=== PATIENT | female | born 1960 | race Caucasian/White ===

== ENCOUNTER 2018-01-27 22:59 | Inpatient (IN) | payer BC, OTHER ==
[~2018-01-27] VITALS: Ht 160 cm; Wt 94.1 kg
[2018-01-27] MEDS ORDERED: IV NORMAL SALINE 1000ML BAG 1,000 ML IV ONE (23:30)
[2018-01-27] MEDS ORDERED: ONDANSETRON PF 4 MG/2 ML VIAL. IV ONE (23:30)
[2018-01-27 23:57] LABS: BASO % 0 % (0-3); EOS % 0 % (0-3); HEMATOCRIT 38.6 % (36.0-47.0); HEMOGLOBIN 13.5 g/dL (12.0-15.5); LYMPH # 0.9 x10^3/uL (1.0-4.8); LYMPH % 4 % (24-48); MEAN CORPUSCULAR HEMOGLOBIN 30 pg (25-35); MEAN CORPUSCULAR HGB CONC 35 g/dL (31-37); MEAN CORPUSCULAR VOLUME 87 fL (79-100); MONO # 2.2 x10^3/uL (0.0-1.1); MONO % 10 % (0-9); NEUT # 18.7 x10^3uL (1.8-7.7); NEUT % 86 % (31-73); PLATELET COUNT 228 x10^3/uL (140-400); RED BLOOD COUNT 4.45 x10^6/uL (3.50-5.40); RED CELL DISTRIBUTION WIDTH 12.2 % (11.5-14.5); WHITE BLOOD COUNT 21.9 x10^3/uL (4.0-11.0)
[2018-01-28 00:11] LABS: ALBUMIN 2.5 g/dL (3.4-5.0); ALBUMIN/GLOBULIN RATIO 0.5 (1.0-1.7); CREATININE 1.2 mg/dL (0.6-1.0); GFR 46.6; TOTAL BILIRUBIN 0.7 mg/dL (0.2-1.0); TOTAL PROTEIN 7.4 g/dL (6.4-8.2)
[2018-01-28 00:13] LABS: BILIRUBIN,URINE NEGATIVE (NEG); CLARITY,URINE CLOUDY; COLOR,URINE YELLOW; NITRITE,URINE NEGATIVE (NEG); PH,URINE 5.5; PROTEIN,URINE 100 mg/dL (NEG-TRACE)
[2018-01-28 00:16] LABS: POTASSIUM 2.1 mmol/L (3.5-5.1)
[2018-01-28 00:20] LABS: BACTERIA,URINE MANY /HPF (0-FEW); SQUAMOUS EPITHELIAL CELL,UR FEW /LPF; WBC,URINE 20-40 /HPF (0-4)
--- NOTE | 2018-01-28 00:34 | PHYS DOC ---
Past Medical History Past Medical History: No Pertinent History Past Surgical History: No Surgical History Alcohol Use: Rarely Drug Use: None Adult General Chief Complaint Chief Complaint: FLU SYMPTOM HPI HPI Patient is a 57 year old female who presents to the ER with complaints of body aches and fatigue since last Tuesday01/22/18. She reports feeling febrile since , she has not measured her temperature. At this time she reports nausea, low back pain, and foul smelling urine. She denies any chest pain, abdominal pain, vomiting, or diarrhea. Review of Systems Review of Systems Constitutional: reports fever, fatigue, and body aches x5-6 days HENT: Denies nasal congestion or sore throat [] Respiratory: Denies cough or shortness of breath [] Cardiovascular: Denies chest pain GI: Denies abdominal pain, vomiting or diarrhea; reports nausea : Denies dysuria, increased frequency, or hematuria; reports foul smelling urine Musculoskeletal: reports bilateral low back pain, denies numbness or tingling Integument: Denies rash or skin lesions [] Neurologic: Denies focal weakness or sensory changes, reports some headaches All other systems were reviewed and found to be within normal limits, except as documented in this note. Current Medications Current Medications Current Medications Medications (Trade) Dose Ordered Sig/Lloyd Start Time Stop Time Status Last Admin Dose Admin Levofloxacin/ Dextrose 100 ml @ 100 mls/hr 1X ONCE 01/28/18 01:00 01/28/18 01:59 Morphine Sulfate (Morphine Sulfate) 4 mg 1X ONCE 01/28/18 01:00 01/28/18 01:01 Ondansetron HCl (Zofran) 4 mg 1X ONCE 01/27/18 23:30 01/27/18 23:31 DC 01/27/18 23:53 4 MG Potassium Chloride (KCl Oral Soln) 40 meq 1X ONCE 01/28/18 03:30 01/28/18 03:31 Sodium Chloride 1,000 ml @ 1,000 mls/hr 1X ONCE 01/28/18 01:00 01/28/18 01:59 Allergies Allergies Allergies Coded Allergies Type Severity Reaction Last Updated Verified diphenhydramine Allergy Severe sensation of bugs 01/27/18 Yes hydrocodone Allergy Severe sensation of bugs 01/27/18 Yes Physical Exam Physical Exam Constitutional: Well developed, well nourished, no acute distress, ill appearance HENT: Normocephalic, atraumatic, bilateral external ears normal, nose normal. [] Eyes: PERRLA, conjunctiva normal, no discharge. [] Neck: Normal range of motion, no tenderness, supple, no stridor, no nuchal rigidity . [] Cardiovascular:Heart rate regular rhythm, no murmur [] Lungs & Thorax: Bilateral breath sounds clear to auscultation [] Skin: Warm, dry, no erythema, no rash. [] Back: bilateral CVA tenderness. [] Extremities: No cyanosis, no clubbing, ROM intact, no edema. [] Neurologic: Alert and oriented X 3, normal motor function, normal sensory function, no focal deficits noted. [] Psychologic: Affect normal, judgement normal, mood normal. [] Current Patient Data Vital Signs Vital Signs Date Time Temp Pulse Resp B/P (MAP) Pulse Ox O2 Delivery O2 Flow Rate FiO2 01/27/18 23:04 102.4 104 22 130/66 (87) 96 Room Air 102.4 Lab Values Laboratory Tests Test 01/27/18 23:37 01/27/18 23:50 White Blood Count 21.9 x10^3/uL (4.0-11.0) H Red Blood Count 4.45 x10^6/uL (3.50-5.40) Hemoglobin 13.5 g/dL (12.0-15.5) Hematocrit 38.6 % (36.0-47.0) Mean Corpuscular Volume 87 fL (79-100) Mean Corpuscular Hemoglobin 30 pg (25-35) Mean Corpuscular Hemoglobin Concent 35 g/dL (31-37) Red Cell Distribution Width 12.2 % (11.5-14.5) Platelet Count 228 x10^3/uL (140-400) Neutrophils (%) (Auto) 86 % (31-73) H Lymphocytes (%) (Auto) 4 % (24-48) L Monocytes (%) (Auto) 10 % (0-9) H Eosinophils (%) (Auto) 0 % (0-3) Basophils (%) (Auto) 0 % (0-3) Neutrophils # (Auto) 18.7 x10^3uL (1.8-7.7) H Lymphocytes # (Auto) 0.9 x10^3/uL (1.0-4.8) L Monocytes # (Auto) 2.2 x10^3/uL (0.0-1.1) H Eosinophils # (Auto) 0.0 x10^3/uL (0.0-0.7) Basophils # (Auto) 0.0 x10^3/uL (0.0-0.2) Segmented Neutrophils % 89 % (35-66) H Band Neutrophils % 2 % (0-9) Lymphocytes % 4 % (24-48) L Monocytes % 5 % (0-10) Toxic Granulation Marked Toxic Vacuolation Mod Dohle Bodies Few Platelet Estimate Adequate (ADEQUATE) Sodium Level 133 mmol/L (136-145) L Potassium Level 2.1 mmol/L (3.5-5.1) *L Chloride Level 92 mmol/L (98-107) L Carbon Dioxide Level 31 mmol/L (21-32) Anion Gap 10 (6-14) Blood Urea Nitrogen 19 mg/dL (7-20) Creatinine 1.2 mg/dL (0.6-1.0) H Estimated GFR (Cockcroft-Gault) 46.6 BUN/Creatinine Ratio 16 (6-20) Glucose Level 132 mg/dL (70-99) H Calcium Level 9.0 mg/dL (8.5-10.1) Total Bilirubin 0.7 mg/dL (0.2-1.0) Aspartate Amino Transferase (AST) 44 U/L (15-37) H Alanine Aminotransferase (ALT) 47 U/L (14-59) Alkaline Phosphatase 136 U/L (46-116) H Total Protein 7.4 g/dL (6.4-8.2) Albumin 2.5 g/dL (3.4-5.0) L Albumin/Globulin Ratio 0.5 (1.0-1.7) L Urine Collection Type Unknown Urine Color Yellow Urine Clarity Cloudy Urine pH 5.5 Urine Specific [place] 1.020 Urine Protein 100 mg/dL (NEG-TRACE) Urine Glucose (UA) Negative mg/dL (NEG) Urine Ketones (Stick) 15 mg/dL (NEG) Urine Blood Large (NEG) Urine Nitrite Negative (NEG) Urine Bilirubin Negative (NEG) Urine Urobilinogen Dipstick 1.0 mg/dL (0.2 mg/dL) Urine Leukocyte Esterase Large (NEG) Urine RBC 6-10 /HPF (0-2) Urine WBC 20-40 /HPF (0-4) Urine Squamous Epithelial Cells Few /LPF Urine Bacteria Many /HPF (0-FEW) Urine Mucus Slight /LPF Laboratory Tests 01/27/18 23:37 Laboratory Tests 01/27/18 23:37 EKG EKG [] Radiology/Procedures Radiology/Procedures [] Course & Med Decision Making Course & Med Decision Making Pertinent Labs and Imaging studies reviewed. (See chart for details) DDx: UTI, pyelonephritis, URI, influenza Dx: pyelonephritis and hypokalemia CBC - BMP 01/27/18 23:37 Urine was concerning for pyelonephritis with 20-40 WBC, large leuk, many bacteria, and blood present. Pt was given 40 meq of liquid potassium, 2 liters of NS, 4 mg zofran, 4 mg morphine, and 500 mg of levaquin in the ER. Decision to admit for pyelonephritis , and hypokalemia to Dr. Griggs. [] Dragdevika Disclaimer Dragon Disclaimer This electronic medical record was generated, in whole or in part, using a voice recognition dictation system. Departure Departure Referrals: CLIF STEWART (PCP) MERLYN ALEJO APRN Jan 28, 2018 00:34
[2018-01-28 00:37] LABS: % BANDS 2 % (0-9); % LYMPHS 4 % (24-48); % MONOS 5 % (0-10); % SEGS 89 % (35-66); PLT ESTIMATE ADEQUATE (ADEQUATE); TOXIC GRANULATION MARKED; TOXIC VACUOLATION MOD
[2018-01-28] MEDS ORDERED: POTASSIUM CHLORIDE 20 MEQ/15 ML ORAL LIQUID. PO ONE ×3 (01:00→03:30)
[2018-01-28] MEDS ORDERED: IV NORMAL SALINE 1000ML BAG 1,000 ML IV ONE (01:00)
[2018-01-28] MEDS ORDERED: MORPHINE SULFATE 4 MG/ML VIAL. IV ONE (01:00)
[2018-01-28 02:20] VITALS: BP 124/57
[2018-01-28] MEDS: MORPHINE SULFATE 4 MG/ML VIAL. IV PRN ×2 (02:44→16:46)
[2018-01-28] MEDS ORDERED: TRAM50TA PO (03:09)
[2018-01-28] MEDS ORDERED: HYDR25TA9 PO (03:09)
[2018-01-28] MEDS ORDERED: TOPI50TA8 PO (03:09)
[2018-01-28] MEDS ORDERED: LISD70CA5 PO (03:09)
[2018-01-28] MEDS ORDERED: MELO15TA23 PO (03:09)
[2018-01-28] MEDS ORDERED: PROAIR HFA8.5 GM INH (03:09)
[2018-01-28] MEDS: ACETAMINOPHEN 325 MG TABLET. PO PRN ×2 (03:12→21:58)
[2018-01-28 07:00] VITALS: BP 82/47
[2018-01-28 07:17] LABS: CALCIUM 8.2 mg/dL (8.5-10.1); CREATININE 1.4 mg/dL (0.6-1.0); POTASSIUM 3.2 mmol/L (3.5-5.1)
[2018-01-28 07:18] LABS: BASO % 0 % (0-3); EOS % 0 % (0-3); HEMATOCRIT 35.9 % (36.0-47.0); HEMOGLOBIN 12.2 g/dL (12.0-15.5); LYMPH # 1.5 x10^3/uL (1.0-4.8); LYMPH % 8 % (24-48); MEAN CORPUSCULAR HEMOGLOBIN 30 pg (25-35); MEAN CORPUSCULAR HGB CONC 34 g/dL (31-37); MEAN CORPUSCULAR VOLUME 89 fL (79-100); MONO # 1.4 x10^3/uL (0.0-1.1); MONO % 8 % (0-9); NEUT # 15.9 x10^3uL (1.8-7.7); NEUT % 84 % (31-73); PLATELET COUNT 200 x10^3/uL (140-400); RED BLOOD COUNT 4.05 x10^6/uL (3.50-5.40); RED CELL DISTRIBUTION WIDTH 12.5 % (11.5-14.5); WHITE BLOOD COUNT 18.9 x10^3/uL (4.0-11.0)
--- NOTE | 2018-01-28 10:53 | PDOC1 ---
History and Physical Date of Admission Date of Admission 01/28/18 Identification/Chief Complaint Chief Complaint body aches, fever and flu like symptoms Source Source: Chart review, Patient History of Present Illness History of Present Illness Patient is a 57 year old female who presents to the ER with complaints of body aches and fatigue since last Tuesday01/22/18. She reports feeling febrile since , she has not measured her temperature. At this time she reports nausea, low back pain, and foul smelling urine. She denies any chest pain, abdominal pain, vomiting, or diarrhea. Past Medical History Cardiovascular: No pertinent hx Pulmonary: No pertinent hx GI: No pertinent hx Heme/Onc: No pertinent hx Hepatobiliary: No pertinent hx Rheumatologic: No pertinent hx Infectious disease: No pertinent hx ENT: No pertinent hx Renal/: No pertinent hx Endocrine: No pertinent hx Past Surgical History Past Surgical History: No pertinent history Family History Family History: Hypertension Social History Smoke: No ALCOHOL: rare Drugs: None Current Medications Current Medications Current Medications Medications (Trade) Dose Ordered Sig/Lloyd Start Time Stop Time Status Last Admin Dose Admin Acetaminophen (Tylenol) 650 mg PRN Q6HRS PRN 01/28/18 03:00 01/28/18 03:12 650 MG Influenza Virus Vaccine (Afluria Trivalent [id number] Syringe) 0.5 ml ONCE ONCE 01/28/18 09:00 01/28/18 09:01 DC 01/28/18 09:06 0.5 ML Levofloxacin/ Dextrose 100 ml @ 100 mls/hr 1X ONCE 01/28/18 01:00 01/28/18 01:59 DC 01/28/18 01:06 100 MLS/HR Morphine Sulfate (Morphine Sulfate) 6 mg PRN Q4HRS PRN 01/28/18 02:45 01/28/18 02:44 6 MG Ondansetron HCl (Zofran) 4 mg 1X ONCE 01/27/18 23:30 01/27/18 23:31 DC 01/27/18 23:53 4 MG Potassium Chloride (KCl Oral Soln) 40 meq 1X ONCE 01/28/18 03:30 01/28/18 03:31 DC 01/28/18 03:12 40 MEQ Sodium Chloride 1,000 ml @ 1,000 mls/hr 1X ONCE 01/28/18 01:00 01/28/18 01:59 DC 01/28/18 01:00 1,000 MLS/HR Allergies Allergies Allergies Coded Allergies Type Severity Reaction Last Updated Verified diphenhydramine Allergy Severe sensation of bugs 01/27/18 Yes hydrocodone Allergy Severe sensation of bugs 01/27/18 Yes ROS Review of System CONSTITUTIONAL: + fever no chills EYES: No recent changes SKIN: No rash or itching CARDIOVASCULAR: No chest pain, syncope, palpitations, or edema RESPIRATORY: No SOB or cough GASTROINTESTINAL: + nausea,NO vomiting or abdominal pain NEUROLOGICAL: No headaches or weakness ENDOCRINE: No cold or heat intolerance GENITOURINARY: No urgency or frequency of urination MUSCULOSKELETAL: + back pain No joint pain LYMPHATICS: No enlarged lymph nodes PSYCHIATRIC: No anxiety or depression Physical Exam Physical Exam GEN.: No apparent distress. Alert and oriented. HEENT: Head is normocephalic, atraumatic NECK: Supple. LUNGS: Clear to auscultation. HEART: RRR, S1, S2 present. Peripheral pulses intact ABDOMEN: Soft, nontender. Positive bowel sounds. EXTREMITIES: Without any cyanosis. NEUROLOGIC: Normal speech, normal tone PSYCHIATRIC: Normal affect, normal mood. SKIN: No ulcerations Vitals Vitals Vital Signs Date Time Temp Pulse Resp B/P (MAP) Pulse Ox O2 Delivery O2 Flow Rate FiO2 01/28/18 10:29 16 Room Air 01/28/18 07:00 97.7 84 82/47 (59) 92 97.7 01/28/18 01:45 Labs Labs Laboratory Tests Test 01/27/18 23:37 01/27/18 23:50 01/28/18 06:35 White Blood Count 21.9 x10^3/uL (4.0-11.0) 18.9 x10^3/uL (4.0-11.0) Red Blood Count 4.45 x10^6/uL (3.50-5.40) 4.05 x10^6/uL (3.50-5.40) Hemoglobin 13.5 g/dL (12.0-15.5) 12.2 g/dL (12.0-15.5) Hematocrit 38.6 % (36.0-47.0) 35.9 % (36.0-47.0) Mean Corpuscular Volume 87 fL (79-100) 89 fL (79-100) Mean Corpuscular Hemoglobin 30 pg (25-35) 30 pg (25-35) Mean Corpuscular Hemoglobin Concent 35 g/dL (31-37) 34 g/dL (31-37) Red Cell Distribution Width 12.2 % (11.5-14.5) 12.5 % (11.5-14.5) Platelet Count 228 x10^3/uL (140-400) 200 x10^3/uL (140-400) Neutrophils (%) (Auto) 86 % (31-73) 84 % (31-73) Lymphocytes (%) (Auto) 4 % (24-48) 8 % (24-48) Monocytes (%) (Auto) 10 % (0-9) 8 % (0-9) Eosinophils (%) (Auto) 0 % (0-3) 0 % (0-3) Basophils (%) (Auto) 0 % (0-3) 0 % (0-3) Neutrophils # (Auto) 18.7 x10^3uL (1.8-7.7) 15.9 x10^3uL (1.8-7.7) Lymphocytes # (Auto) 0.9 x10^3/uL (1.0-4.8) 1.5 x10^3/uL (1.0-4.8) Monocytes # (Auto) 2.2 x10^3/uL (0.0-1.1) 1.4 x10^3/uL (0.0-1.1) Eosinophils # (Auto) 0.0 x10^3/uL (0.0-0.7) 0.0 x10^3/uL (0.0-0.7) Basophils # (Auto) 0.0 x10^3/uL (0.0-0.2) 0.0 x10^3/uL (0.0-0.2) Segmented Neutrophils % 89 % (35-66) Band Neutrophils % 2 % (0-9) Lymphocytes % 4 % (24-48) Monocytes % 5 % (0-10) Toxic Granulation Marked Toxic Vacuolation Mod Dohle Bodies Few Platelet Estimate Adequate (ADEQUATE) Sodium Level 133 mmol/L (136-145) 136 mmol/L (136-145) Potassium Level 2.1 mmol/L (3.5-5.1) 3.2 mmol/L (3.5-5.1) Chloride Level 92 mmol/L (98-107) 100 mmol/L (98-107) Carbon Dioxide Level 31 mmol/L (21-32) 26 mmol/L (21-32) Anion Gap 10 (6-14) 10 (6-14) Blood Urea Nitrogen 19 mg/dL (7-20) 19 mg/dL (7-20) Creatinine 1.2 mg/dL (0.6-1.0) 1.4 mg/dL (0.6-1.0) Estimated GFR (Cockcroft-Gault) 46.6 39.0 BUN/Creatinine Ratio 16 (6-20) Glucose Level 132 mg/dL (70-99) 151 mg/dL (70-99) Calcium Level 9.0 mg/dL (8.5-10.1) 8.2 mg/dL (8.5-10.1) Total Bilirubin 0.7 mg/dL (0.2-1.0) Aspartate Amino Transf (AST/SGOT) 44 U/L (15-37) Alanine Aminotransferase (ALT/SGPT) 47 U/L (14-59) Alkaline Phosphatase 136 U/L (46-116) Total Protein 7.4 g/dL (6.4-8.2) Albumin 2.5 g/dL (3.4-5.0) Albumin/Globulin Ratio 0.5 (1.0-1.7) Urine Collection Type Unknown Urine Color Yellow Urine Clarity Cloudy Urine pH 5.5 Urine Specific [place] 1.020 Urine Protein 100 mg/dL (NEG-TRACE) Urine Glucose (UA) Negative mg/dL (NEG) Urine Ketones (Stick) 15 mg/dL (NEG) Urine Blood Large (NEG) Urine Nitrite Negative (NEG) Urine Bilirubin Negative (NEG) Urine Urobilinogen Dipstick 1.0 mg/dL (0.2 mg/dL) Urine Leukocyte Esterase Large (NEG) Urine RBC 6-10 /HPF (0-2) Urine WBC 20-40 /HPF (0-4) Urine Squamous Epithelial Cells Few /LPF Urine Bacteria Many /HPF (0-FEW) Urine Mucus Slight /LPF Lactic Acid Level 1.2 mmol/L (0.4-2.0) Laboratory Tests Test 01/27/18 23:37 9/28/18 23:50 01/28/18 06:35 White Blood Count 21.9 x10^3/uL (4.0-11.0) 18.9 x10^3/uL (4.0-11.0) Red Blood Count 4.45 x10^6/uL (3.50-5.40) 4.05 x10^6/uL (3.50-5.40) Hemoglobin 13.5 g/dL (12.0-15.5) 12.2 g/dL (12.0-15.5) Hematocrit 38.6 % (36.0-47.0) 35.9 % (36.0-47.0) Mean Corpuscular Volume 87 fL (79-100) 89 fL (79-100) Mean Corpuscular Hemoglobin 30 pg (25-35) 30 pg (25-35) Mean Corpuscular Hemoglobin Concent 35 g/dL (31-37) 34 g/dL (31-37) Red Cell Distribution Width 12.2 % (11.5-14.5) 12.5 % (11.5-14.5) Platelet Count 228 x10^3/uL (140-400) 200 x10^3/uL (140-400) Neutrophils (%) (Auto) 86 % (31-73) 84 % (31-73) Lymphocytes (%) (Auto) 4 % (24-48) 8 % (24-48) Monocytes (%) (Auto) 10 % (0-9) 8 % (0-9) Eosinophils (%) (Auto) 0 % (0-3) 0 % (0-3) Basophils (%) (Auto) 0 % (0-3) 0 % (0-3) Neutrophils # (Auto) 18.7 x10^3uL (1.8-7.7) 15.9 x10^3uL (1.8-7.7) Lymphocytes # (Auto) 0.9 x10^3/uL (1.0-4.8) 1.5 x10^3/uL (1.0-4.8) Monocytes # (Auto) 2.2 x10^3/uL (0.0-1.1) 1.4 x10^3/uL (0.0-1.1) Eosinophils # (Auto) 0.0 x10^3/uL (0.0-0.7) 0.0 x10^3/uL (0.0-0.7) Basophils # (Auto) 0.0 x10^3/uL (0.0-0.2) 0.0 x10^3/uL (0.0-0.2) Segmented Neutrophils % 89 % (35-66) Band Neutrophils % 2 % (0-9) Lymphocytes % 4 % (24-48) Monocytes % 5 % (0-10) Toxic Granulation Marked Toxic Vacuolation Mod Dohle Bodies Few Platelet Estimate Adequate (ADEQUATE) Sodium Level 133 mmol/L (136-145) 136 mmol/L (136-145) Potassium Level 2.1 mmol/L (3.5-5.1) 3.2 mmol/L (3.5-5.1) Chloride Level 92 mmol/L (98-107) 100 mmol/L (98-107) Carbon Dioxide Level 31 mmol/L (21-32) 26 mmol/L (21-32) Anion Gap 10 (6-14) 10 (6-14) Blood Urea Nitrogen 19 mg/dL (7-20) 19 mg/dL (7-20) Creatinine 1.2 mg/dL (0.6-1.0) 1.4 mg/dL (0.6-1.0) Estimated GFR (Cockcroft-Gault) 46.6 39.0 BUN/Creatinine Ratio 16 (6-20) Glucose Level 132 mg/dL (70-99) 151 mg/dL (70-99) Calcium Level 9.0 mg/dL (8.5-10.1) 8.2 mg/dL (8.5-10.1) Total Bilirubin 0.7 mg/dL (0.2-1.0) Aspartate Amino Transf (AST/SGOT) 44 U/L (15-37) Alanine Aminotransferase (ALT/SGPT) 47 U/L (14-59) Alkaline Phosphatase 136 U/L (46-116) Total Protein 7.4 g/dL (6.4-8.2) Albumin 2.5 g/dL (3.4-5.0) Albumin/Globulin Ratio 0.5 (1.0-1.7) Urine Collection Type Unknown Urine Color Yellow Urine Clarity Cloudy Urine pH 5.5 Urine Specific [place] 1.020 Urine Protein 100 mg/dL (NEG-TRACE) Urine Glucose (UA) Negative mg/dL (NEG) Urine Ketones (Stick) 15 mg/dL (NEG) Urine Blood Large (NEG) Urine Nitrite Negative (NEG) Urine Bilirubin Negative (NEG) Urine Urobilinogen Dipstick 1.0 mg/dL (0.2 mg/dL) Urine Leukocyte Esterase Large (NEG) Urine RBC 6-10 /HPF (0-2) Urine WBC 20-40 /HPF (0-4) Urine Squamous Epithelial Cells Few /LPF Urine Bacteria Many /HPF (0-FEW) Urine Mucus Slight /LPF Lactic Acid Level 1.2 mmol/L (0.4-2.0) VTE Prophylaxis Ordered VTE Prophylaxis Devices: Yes VTE Pharmacological Prophylaxi: No Assessment/Plan Assessment/Plan 1-Pyelonephritis 2-RODERICK due to dehydration pre renal 3-Hypokalemia 4-Leukocytosis 5-hyperglycemia started IV Abx, check renol sono, hydrate , monitor and replace electrolytes , recheck VALE GOEL MD Jan 28, 2018 10:53
[2018-01-28 11:00] VITALS: BP 81/45
[2018-01-28] MEDS ORDERED: POTASSIUM CHLORIDE 20 MEQ TABLET.ER. PO ONE (13:00)
[2018-01-28 15:00] VITALS: BP 116/45
--- NOTE | 2018-01-28 15:01 | RAD ---
Examination: Ultrasound kidneys HISTORY: History of elevated creatinine COMPARISON: None available FINDINGS: The right kidney measures 13.8 x 5.2 x 6.0 cm. The left kidney measures 13.0 x 5.8 x 6.1 cm. The urinary bladder is mildly distended. IMPRESSION: Unremarkable visualized exam. Electronically signed by: Ranjith Bahena MD (01/28/2018 2:58 PM) [facility]
[2018-01-28 18:53] VITALS: BP 116/78
[2018-01-28] MEDS: LACTOBACILLUS RHAMNOSUS GG 1 CAPSULE. PO SCH (21:22)
[2018-01-28] MEDS ORDERED: BUDE10.22 IH (21:28)
[2018-01-28] MEDS ORDERED: traMADol 50 MG TABLET PO PRN (21:45)
[2018-01-28] MEDS ORDERED: NON FORMULARY ITEM (Budesonide/Formoterol Fumarate (Symbicort 80-4.5 Mcg Inhaler) 1 PUFF) IH SCH (21:45)
[2018-01-28 22:08] VITALS: BP 115/62
[2018-01-29 03:27] VITALS: BP 113/72
[2018-01-29 06:57] LABS: ALBUMIN/GLOBULIN RATIO 0.5 (1.0-1.7); CALCIUM 8.3 mg/dL (8.5-10.1); CREATININE 0.9 mg/dL (0.6-1.0); POTASSIUM 3.6 mmol/L (3.5-5.1); TOTAL BILIRUBIN 0.4 mg/dL (0.2-1.0); TOTAL PROTEIN 6.1 g/dL (6.4-8.2)
[2018-01-29 07:00] VITALS: BP 105/73
[2018-01-29 07:09] LABS: HEMATOCRIT 33.3 % (36.0-47.0); HEMOGLOBIN 11.3 g/dL (12.0-15.5); RED BLOOD COUNT 3.78 x10^6/uL (3.50-5.40); RED CELL DISTRIBUTION WIDTH 12.8 % (11.5-14.5); WHITE BLOOD COUNT 12.4 x10^3/uL (4.0-11.0)
[2018-01-29] MEDS: BUDESONIDE 0.5 MG/2 ML NEBU. NEB SCH ×2 (08:14→19:42)
[2018-01-29] MEDS: ALBUTEROL SULFATE 2.5 MG/3 ML NEBU. NEB SCH ×3 (08:15→19:42)
[2018-01-29] MEDS: LACTOBACILLUS RHAMNOSUS GG 1 CAPSULE. PO SCH ×2 (08:25→20:17)
[2018-01-29] MEDS: MELOXICAM 7.5 MG TABLET PO SCH (08:28)
[2018-01-29] MEDS ORDERED: hydroCHLOROthiazide 25 MG TABLET PO SCH (09:00)
[2018-01-29] MEDS ORDERED: NON FORMULARY ITEM (Lisdexamfetamine Dimesylate (Vyvanse) 70 MG) PO SCH (09:00)
[2018-01-29] MEDS ORDERED: POTASSIUM CL 20MEQ D5-0.45NACL 1,000 ML IV SCH (09:30)
[2018-01-29] MEDS: POTASSIUM CL 20MEQ-0.45% NACL 1,000 ML IV SCH ×2 (10:11→17:56)
[2018-01-29] MEDS: PANTOPRAZOLE 40 MG TABLET.DR. PO SCH (10:13)
[2018-01-29 11:00] VITALS: BP 108/64
--- NOTE | 2018-01-29 11:05 | PDOC ---
PROGRESS NOTES Chief Complaint Chief Complaint presented with fever and back pain diagnosis Pyelonephritis she feels much better today decrease pain , fever down still mild tachycardia continue IVF, continue ABx, K+ better , kidney function better, renal US noted History of Present Illness History of Present Illness 1-Pyelonephritis 2-RODERICK due to dehydration pre renal improved , renal sono ok 3-Hypokalemia replaced 4-Leukocytosis improved 5-hyperglycemia minimal HbA1c pending continue Abx, hydration , likely home tomorrow if continue to improve Vitals Vitals Vital Signs Date Time Temp Pulse Resp B/P (MAP) Pulse Ox O2 Delivery O2 Flow Rate FiO2 01/29/18 08:15 95 Room Air 01/29/18 07:00 99.9 91 18 105/73 (84) 99.9 Physical Exam General: Alert, Oriented X3, Cooperative Heart: Regular rate, Normal S1, Normal S2 Lungs: Clear Abdomen: Normal bowel sounds, Soft, No tenderness Extremities: No clubbing, No cyanosis Labs LABS Laboratory Tests Test 01/29/18 06:25 White Blood Count 12.4 x10^3/uL (4.0-11.0) Red Blood Count 3.78 x10^6/uL (3.50-5.40) Hemoglobin 11.3 g/dL (12.0-15.5) Hematocrit 33.3 % (36.0-47.0) Mean Corpuscular Volume 88 fL (79-100) Mean Corpuscular Hemoglobin 30 pg (25-35) Mean Corpuscular Hemoglobin Concent 34 g/dL (31-37) Red Cell Distribution Width 12.8 % (11.5-14.5) Platelet Count 215 x10^3/uL (140-400) Sodium Level 140 mmol/L (136-145) Potassium Level 3.6 mmol/L (3.5-5.1) Chloride Level 102 mmol/L (98-107) Carbon Dioxide Level 27 mmol/L (21-32) Anion Gap 11 (6-14) Blood Urea Nitrogen 13 mg/dL (7-20) Creatinine 0.9 mg/dL (0.6-1.0) Estimated GFR (Cockcroft-Gault) 65.0 BUN/Creatinine Ratio 14 (6-20) Glucose Level 112 mg/dL (70-99) Calcium Level 8.3 mg/dL (8.5-10.1) Total Bilirubin 0.4 mg/dL (0.2-1.0) Aspartate Amino Transf (AST/SGOT) 45 U/L (15-37) Alanine Aminotransferase (ALT/SGPT) 59 U/L (14-59) Alkaline Phosphatase 112 U/L (46-116) Total Protein 6.1 g/dL (6.4-8.2) Albumin 2.0 g/dL (3.4-5.0) Albumin/Globulin Ratio 0.5 (1.0-1.7) Comment Review of Relevant I have reviewed the following items abhijeet (where applicable) has been applied. Labs Laboratory Tests Test 01/27/18 23:37 01/27/18 23:50 01/28/18 06:35 01/29/18 06:25 White Blood Count 21.9 x10^3/uL (4.0-11.0) 18.9 x10^3/uL (4.0-11.0) 12.4 x10^3/uL (4.0-11.0) Red Blood Count 4.45 x10^6/uL (3.50-5.40) 4.05 x10^6/uL (3.50-5.40) 3.78 x10^6/uL (3.50-5.40) Hemoglobin 13.5 g/dL (12.0-15.5) 12.2 g/dL (12.0-15.5) 11.3 g/dL (12.0-15.5) Hematocrit 38.6 % (36.0-47.0) 35.9 % (36.0-47.0) 33.3 % (36.0-47.0) Mean Corpuscular Volume 87 fL (79-100) 89 fL (79-100) 88 fL (79-100) Mean Corpuscular Hemoglobin 30 pg (25-35) 30 pg (25-35) 30 pg (25-35) Mean Corpuscular Hemoglobin Concent 35 g/dL (31-37) 34 g/dL (31-37) 34 g/dL (31-37) Red Cell Distribution Width 12.2 % (11.5-14.5) 12.5 % (11.5-14.5) 12.8 % (11.5-14.5) Platelet Count 228 x10^3/uL (140-400) 200 x10^3/uL (140-400) 215 x10^3/uL (140-400) Neutrophils (%) (Auto) 86 % (31-73) 84 % (31-73) Lymphocytes (%) (Auto) 4 % (24-48) 8 % (24-48) Monocytes (%) (Auto) 10 % (0-9) 8 % (0-9) Eosinophils (%) (Auto) 0 % (0-3) 0 % (0-3) Basophils (%) (Auto) 0 % (0-3) 0 % (0-3) Neutrophils # (Auto) 18.7 x10^3uL (1.8-7.7) 15.9 x10^3uL (1.8-7.7) Lymphocytes # (Auto) 0.9 x10^3/uL (1.0-4.8) 1.5 x10^3/uL (1.0-4.8) Monocytes # (Auto) 2.2 x10^3/uL (0.0-1.1) 1.4 x10^3/uL (0.0-1.1) Eosinophils # (Auto) 0.0 x10^3/uL (0.0-0.7) 0.0 x10^3/uL (0.0-0.7) Basophils # (Auto) 0.0 x10^3/uL (0.0-0.2) 0.0 x10^3/uL (0.0-0.2) Segmented Neutrophils % 89 % (35-66) Band Neutrophils % 2 % (0-9) Lymphocytes % 4 % (24-48) Monocytes % 5 % (0-10) Toxic Granulation Marked Toxic Vacuolation Mod Dohle Bodies Few Platelet Estimate Adequate (ADEQUATE) Sodium Level 133 mmol/L (136-145) 136 mmol/L (136-145) 140 mmol/L (136-145) Potassium Level 2.1 mmol/L (3.5-5.1) 3.2 mmol/L (3.5-5.1) 3.6 mmol/L (3.5-5.1) Chloride Level 92 mmol/L (98-107) 100 mmol/L (98-107) 102 mmol/L (98-107) Carbon Dioxide Level 31 mmol/L (21-32) 26 mmol/L (21-32) 27 mmol/L (21-32) Anion Gap 10 (6-14) 10 (6-14) 11 (6-14) Blood Urea Nitrogen 19 mg/dL (7-20) 19 mg/dL (7-20) 13 mg/dL (7-20) Creatinine 1.2 mg/dL (0.6-1.0) 1.4 mg/dL (0.6-1.0) 0.9 mg/dL (0.6-1.0) Estimated GFR (Cockcroft-Gault) 46.6 39.0 65.0 BUN/Creatinine Ratio 16 (6-20) 14 (6-20) Glucose Level 132 mg/dL (70-99) 151 mg/dL (70-99) 112 mg/dL (70-99) Calcium Level 9.0 mg/dL (8.5-10.1) 8.2 mg/dL (8.5-10.1) 8.3 mg/dL (8.5-10.1) Total Bilirubin 0.7 mg/dL (0.2-1.0) 0.4 mg/dL (0.2-1.0) Aspartate Amino Transf (AST/SGOT) 44 U/L (15-37) 45 U/L (15-37) Alanine Aminotransferase (ALT/SGPT) 47 U/L (14-59) 59 U/L (14-59) Alkaline Phosphatase 136 U/L (46-116) 112 U/L (46-116) Total Protein 7.4 g/dL (6.4-8.2) 6.1 g/dL (6.4-8.2) Albumin 2.5 g/dL (3.4-5.0) 2.0 g/dL (3.4-5.0) Albumin/Globulin Ratio 0.5 (1.0-1.7) 0.5 (1.0-1.7) Urine Collection Type Unknown Urine Color Yellow Urine Clarity Cloudy Urine pH 5.5 Urine Specific [place] 1.020 Urine Protein 100 mg/dL (NEG-TRACE) Urine Glucose (UA) Negative mg/dL (NEG) Urine Ketones (Stick) 15 mg/dL (NEG) Urine Blood Large (NEG) Urine Nitrite Negative (NEG) Urine Bilirubin Negative (NEG) Urine Urobilinogen Dipstick 1.0 mg/dL (0.2 mg/dL) Urine Leukocyte Esterase Large (NEG) Urine RBC 6-10 /HPF (0-2) Urine WBC 20-40 /HPF (0-4) Urine Squamous Epithelial Cells Few /LPF Urine Bacteria Many /HPF (0-FEW) Urine Mucus Slight /LPF Lactic Acid Level 1.2 mmol/L (0.4-2.0) Laboratory Tests Test 01/29/18 06:25 White Blood Count 12.4 x10^3/uL (4.0-11.0) Red Blood Count 3.78 x10^6/uL (3.50-5.40) Hemoglobin 11.3 g/dL (12.0-15.5) Hematocrit 33.3 % (36.0-47.0) Mean Corpuscular Volume 88 fL (79-100) Mean Corpuscular Hemoglobin 30 pg (25-35) Mean Corpuscular Hemoglobin Concent 34 g/dL (31-37) Red Cell Distribution Width 12.8 % (11.5-14.5) Platelet Count 215 x10^3/uL (140-400) Sodium Level 140 mmol/L (136-145) Potassium Level 3.6 mmol/L (3.5-5.1) Chloride Level 102 mmol/L (98-107) Carbon Dioxide Level 27 mmol/L (21-32) Anion Gap 11 (6-14) Blood Urea Nitrogen 13 mg/dL (7-20) Creatinine 0.9 mg/dL (0.6-1.0) Estimated GFR (Cockcroft-Gault) 65.0 BUN/Creatinine Ratio 14 (6-20) Glucose Level 112 mg/dL (70-99) Calcium Level 8.3 mg/dL (8.5-10.1) Total Bilirubin 0.4 mg/dL (0.2-1.0) Aspartate Amino Transf (AST/SGOT) 45 U/L (15-37) Alanine Aminotransferase (ALT/SGPT) 59 U/L (14-59) Alkaline Phosphatase 112 U/L (46-116) Total Protein 6.1 g/dL (6.4-8.2) Albumin 2.0 g/dL (3.4-5.0) Albumin/Globulin Ratio 0.5 (1.0-1.7) Microbiology 01/28/18 Blood Culture - Preliminary, Resulted NO GROWTH AFTER 1 DAY Medications Current Medications Ondansetron HCl (Zofran) 4 mg 1X ONCE IV Last administered on 01/27/18at 23:53 ; Start 01/27/18 at 23:30; Stop 01/27/18 at 23:31; Status DC Sodium Chloride 1,000 ml @ 1,000 mls/hr 1X ONCE IV Last administered on at 23:53; Start 01/27/18 at 23:30; Stop 01/28/18 at 00:29; Status DC Potassium Chloride (KCl Oral Soln) 40 meq 1X ONCE PO Last administered on 01/28at 01:06; Start 01/28/18 at 01:00; Stop 01/28/18 at 01:01; Status DC Levofloxacin/ Dextrose 100 ml @ 100 mls/hr 1X ONCE IV Last administered on at 01:06; Start 01/28/18 at 01:00; Stop 01/28/18 at 01:59; Status DC Sodium Chloride 1,000 ml @ 1,000 mls/hr 1X ONCE IV Last administered on at 01:00; Start 01/28/18 at 01:00; Stop 01/28/18 at 01:59; Status DC Potassium Chloride (KCl Oral Soln) 40 meq ONCE ONCE PO Last administered on at 03:00; Start 01/28/18 at 01:30; Stop 01/28/18 at 01:31; Status DC Potassium Chloride (KCl Oral Soln) 40 meq 1X ONCE PO Last administered on 01/28at 03:12; Start 01/28/18 at 03:30; Stop 01/28/18 at 03:31; Status DC Morphine Sulfate (Morphine Sulfate) 4 mg 1X ONCE IV Last administered on at 01:08; Start 01/28/18 at 01:00; Stop 01/28/18 at 01:01; Status DC Morphine Sulfate (Morphine Sulfate) 6 mg PRN Q4HRS PRN IV SEVERE PAIN Last administered on 01/28/18at 16:46; Start 01/28/18 at 02:45 Acetaminophen (Tylenol) 650 mg PRN Q6HRS PRN PO FEVER Last administered on 01/28 21:58; Start 01/28/18 at 03:00 Influenza Virus Vaccine (Afluria Trivalent [id number] Syringe) 0.5 ml ONCE ONCE VAX IM Last administered on 01/28/18 09:06; Start 01/28/18 at 09:00; Stop at 09:01; Status DC Potassium Chloride (Klor-Con) 40 meq 1X ONCE PO Last administered on 15:00; Start 01/28/18 at 13:00; Stop 01/28/18 at 13:01; Status DC Levofloxacin/ Dextrose 100 ml @ 100 mls/hr Q24H IV Last administered on 21:58; Start 01/28/18 at 22:00 Lactobacillus Rhamnosus (Culturelle) 1 cap BID PO Last administered on 08:25; Start 01/28/18 at 21:00 Hydrochlorothiazide (Hydrodiuril) 25 mg [id number] PO ; Start 01/29/18 at 09:00 Tramadol HCl (Ultram) 50 mg PRN TID PRN PO MODERATE PAIN; Start 01/28/18 at 21: 45 Non-Formulary Medication (Budesonide/ Formoterol Fumarate (Symbicort 80-4.5 Mcg Inhaler)) 1 puff PRN TID IH ; Start 01/28/18 at 21:45; Status UNV Non-Formulary Medication (Lisdexamfetamine Dimesylate (Vyvanse)) 70 mg DAILY PO ; Start 01/29/18 at 09:00; Status UNV Meloxicam (Mobic) 15 mg DAILY PO Last administered on 01/29/18at 08:28; Start at 09:00 Albuterol Sulfate (Ventolin Neb Soln) 2.5 mg RTQID NEB Last administered on 08:15; Start 01/29/18 at 08:00 Budesonide (Pulmicort) 0.5 mg RTBID NEB Last administered on 01/29/18 08:14; Start 01/29/18 at 08:00 Pantoprazole Sodium (Protonix) 40 mg DAILYAC PO Last administered on 9/30/18at 10:13; Start 01/29/18 at 09:30 Potassium Chloride/Dextrose/ Sod Cl 1,000 ml @ 125 mls/hr Q8H IV ; Start at 09:30; Status Cancel Potassium Chloride/Sodium Chloride 1,000 ml @ 125 mls/hr Q8H IV Last administered on 01/29/18at 10:11; Start 01/29/18 at 10:30 Active Scripts Active Reported Symbicort 80-4.5 Mcg Inhaler (Budesonide/Formoterol Fumarate) 10.2 Gm Hfa.aer.ad 1 Puff IH PRN TID Vyvanse (Lisdexamfetamine Dimesylate) 70 Mg Capsule 70 Mg PO DAILY Meloxicam 15 Mg Tablet 15 Mg PO DAILY Tramadol Hcl 50 Mg Tablet 50 Mg PO PRN TID PRN Vitals/I & O Vital Sign - Last 24 Hours 01/28/18 01/28/18 01/28/18 01/28/18 15:00 16:46 17:16 18:53 Temp 99.1 98.2 99.1 98.2 Pulse 98 97 Resp 17 16 16 18 B/P (MAP) 116/45 (68) 116/78 (91) Pulse Ox 98 96 O2 Delivery Room Air Room Air Room Air Room Air 01/28/18 01/28/18 01/28/18 01/29/18 19:39 22:08 23:22 03:27 Temp 101.8 99.7 101.5 101.8 99.7 101.5 Pulse 104 91 Resp 19 18 B/P (MAP) 115/62 (79) 113/72 (86) Pulse Ox 92 96 O2 Delivery Room Air Room Air Room Air 01/29/18 01/29/18 07:00 08:15 Temp 99.9 99.9 Pulse 91 Resp 18 B/P (MAP) 105/73 (84) Pulse Ox 96 95 O2 Delivery Room Air Room Air Intake and Output 01/28/18 01/28/18 01/29/18 15:00 23:00 07:00 Intake Total 900 ml 300 ml Output Total 0 ml Balance 900 ml 300 ml VALE REYES MD Jan 29, 2018 11:05
[2018-01-29] MEDS: ACETAMINOPHEN 325 MG TABLET. PO PRN ×2 (11:24→20:16)
[2018-01-29 15:15] VITALS: BP 120/71
[2018-01-29 19:00] VITALS: BP 122/82
--- NOTE | 2018-01-29 19:06 | PDOC ---
Infectious Disease Note Vital Sign Vital Signs Vital Signs Date Time Temp Pulse Resp B/P (MAP) Pulse Ox O2 Delivery O2 Flow Rate FiO2 01/29/18 15:15 97.9 87 18 120/71 (87) 98 Room Air 97.9 Labs Lab Laboratory Tests Test 01/29/18 06:25 White Blood Count 12.4 x10^3/uL (4.0-11.0) Red Blood Count 3.78 x10^6/uL (3.50-5.40) Hemoglobin 11.3 g/dL (12.0-15.5) Hematocrit 33.3 % (36.0-47.0) Mean Corpuscular Volume 88 fL (79-100) Mean Corpuscular Hemoglobin 30 pg (25-35) Mean Corpuscular Hemoglobin Concent 34 g/dL (31-37) Red Cell Distribution Width 12.8 % (11.5-14.5) Platelet Count 215 x10^3/uL (140-400) Sodium Level 140 mmol/L (136-145) Potassium Level 3.6 mmol/L (3.5-5.1) Chloride Level 102 mmol/L (98-107) Carbon Dioxide Level 27 mmol/L (21-32) Anion Gap 11 (6-14) Blood Urea Nitrogen 13 mg/dL (7-20) Creatinine 0.9 mg/dL (0.6-1.0) Estimated GFR (Cockcroft-Gault) 65.0 BUN/Creatinine Ratio 14 (6-20) Glucose Level 112 mg/dL (70-99) Calcium Level 8.3 mg/dL (8.5-10.1) Total Bilirubin 0.4 mg/dL (0.2-1.0) Aspartate Amino Transf (AST/SGOT) 45 U/L (15-37) Alanine Aminotransferase (ALT/SGPT) 59 U/L (14-59) Alkaline Phosphatase 112 U/L (46-116) Total Protein 6.1 g/dL (6.4-8.2) Albumin 2.0 g/dL (3.4-5.0) Albumin/Globulin Ratio 0.5 (1.0-1.7) Micro Microbiology 01/28/18 Blood Culture - Preliminary, Resulted NO GROWTH AFTER 1 DAY Objective Assessment Acute cystitis w/ possible pyelonephritis with positive CVAT Fever Leukocytosis Obesity Plan Plan of Care Clinically improving, continue Levaquin Maintain hydration f/u cultures D/w D/w RN Thank you [id number] Patient seen and examined 01/29/18. Chart reviewed in detail. Case discussed in detail. Agree with above plan. AMA JIMENEZ APRN Jan 29, 2018 19:06 POOJA DORMAN MD Feb 01, 2018 15:05
[2018-01-29] MEDS: MORPHINE SULFATE 4 MG/ML VIAL. IV PRN (20:20)
[2018-01-29 22:52] VITALS: BP 102/65
[2018-01-30 01:10] LABS: HEMOGLOBIN A1C 5.7 % (4.8-5.6)
[2018-01-30 03:00] VITALS: BP 158/87
[2018-01-30] MEDS: ACETAMINOPHEN 325 MG TABLET. PO PRN ×2 (03:21→23:18)
[2018-01-30] MEDS: POTASSIUM CL 20MEQ-0.45% NACL 1,000 ML IV SCH ×3 (03:21→17:00)
[2018-01-30 05:31] LABS: HEMATOCRIT 31.8 % (36.0-47.0); HEMOGLOBIN 11.1 g/dL (12.0-15.5); RED BLOOD COUNT 3.61 x10^6/uL (3.50-5.40); RED CELL DISTRIBUTION WIDTH 12.9 % (11.5-14.5); WHITE BLOOD COUNT 10.1 x10^3/uL (4.0-11.0)
[2018-01-30 05:52] LABS: CREATININE 0.8 mg/dL (0.6-1.0); GFR 74.5; POTASSIUM 3.7 mmol/L (3.5-5.1)
--- NOTE | 2018-01-30 05:52 | CONS ---
DATE OF CONSULTATION: 01/29/2018 REFERRING PHYSICIAN: Dr. Olivia. REASON FOR CONSULTATION: Positive sepsis screen. HISTORY OF PRESENT ILLNESS: This patient is a 57-year-old female who about a week ago woke up with generalized body aches and fatigue. She went to work the next day and was doing okay, but by evening, she felt worse with fever, chills and sweats. She lost her appetite and stayed in bed for the most part for the next 4 days. She took Tylenol and ibuprofen with minimal relief. She thought she had the flu and was waiting it out. During this time, she noticed her urine had a strong malodor and was dark and cloudy, associated with low back pain. On arrival to the ER, she had a temperature of 102.4 [place] [id number]. Urinalysis showed WBCs 20-40, large leukocyte esterase, a few squamous epithelial cells, and many bacteria. Urine culture is in process. The blood cultures are negative so far. She is currently on levofloxacin. Since admission, her white blood cell count has been trending down. She says she felt pretty helpless yesterday, but today, she is feeling much better. Her urine is starting to return to normal and her appetite is slowly improving. Denies history of urinary tract infections. She recalls over the past several weeks to a couple of months, she has had urinary urgency in the morning and her urine was cloudy. PAST MEDICAL HISTORY: Arthritis. PAST SURGICAL HISTORY: No significant past surgical history. FAMILY HISTORY: Noncontributory. SOCIAL HISTORY: The patient is . 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 ALLERGIES: BENADRYL and HYDROCODONE. MEDICATIONS: Levofloxacin. Other medications are available and have been reviewed on the JUN. REVIEW OF SYSTEMS: The patient denies headaches, dizziness or confusion. Denies nasal/sinus congestion or sore throat. Denies cough, shortness of air or chest discomfort. Denies nausea, vomiting or diarrhea. Body aches and chills have settled down. PHYSICAL EXAMINATION: GENERAL: The patient is a slightly propped up in bed, alert, smiling, no apparent distress. VITAL SIGNS: Temperature is 97.9, T-max 101.8, blood pressure 120/71, heart rate 87, respiratory rate 18, pulse oximetry is 98% on room air, BMI 36. HEENT: Pupils equally round. Normal conjunctivae. Oral cavity: Pharynx pink and moist. NECK: Supple. LUNGS: Clear to auscultation. HEART: S1, S2. ABDOMEN: Obese. Bowel sounds active. Soft, nontender. BACK: Positive CVA tenderness bilaterally. EXTREMITIES: No gross edema or cyanosis. SKIN: Warm without generalized rash. NEUROLOGIC: Alert and oriented times 3. LABORATORY DATA: Today WBC 12.4 from 21.9 on admission, hemoglobin 11.3, platelet count 215,000. Creatinine 0.9 from 1.2 on admission. BUN 13. Electrolytes are unremarkable. Lactic acid 1.2, glucose 112, total bilirubin 0.4, AST 45, ALT 59, albumin 3.0. Urinalysis per HPI. Urine culture in process. Blood cultures negative to date. Renal ultrasound unremarkable. IMPRESSION: 1. Acute cystitis with possible pyelonephritis with positive costovertebral angle tenderness. 2. Fever. 3. Leukocytosis. 4. Obesity. PLAN: The patient is clinically improving. Continue the Levaquin. Maintain hydration. We will follow up on culture results. Discussed with . Thank you, Dr. Olivia, for asking us to participate in this patient's care. Should you have further questions or concerns, please call. POOJA DORMAN MD DR: DIXON/kimberly JOB#: [id number] / [id number]
[2018-01-30] MEDS: ALBUTEROL SULFATE 2.5 MG/3 ML NEBU. NEB SCH ×2 (07:00→18:00)
[2018-01-30 07:10] VITALS: BP 134/83
[2018-01-30] MEDS: BUDESONIDE 0.5 MG/2 ML NEBU. NEB SCH ×2 (07:23→19:34)
[2018-01-30] MEDS: PANTOPRAZOLE 40 MG TABLET.DR. PO SCH (08:35)
[2018-01-30] MEDS: hydroCHLOROthiazide 25 MG TABLET PO SCH (08:35)
[2018-01-30] MEDS: MELOXICAM 7.5 MG TABLET PO SCH (08:35)
[2018-01-30] MEDS: LACTOBACILLUS RHAMNOSUS GG 1 CAPSULE. PO SCH ×2 (08:35→22:02)
--- NOTE | 2018-01-30 10:32 | PDOC ---
Infectious Disease Note Subjective Subjective feeling much better ROS ROS no n/v/d/sob Vital Sign Vital Signs Vital Signs Date Time Temp Pulse Resp B/P (MAP) Pulse Ox O2 Delivery O2 Flow Rate FiO2 01/30/18 07:59 Room Air 01/30/18 07:10 98.1 75 16 134/83 (100) 95 98.1 Physical Exam PHYSICAL EXAM GENERAL: The patient is a slightly propped up in bed, alert, smiling, no apparent distress. VITAL SIGNS: stable HEENT: Pupils equally round. Normal conjunctivae. Oral cavity: Pharynx pink and moist. NECK: Supple. LUNGS: Clear to auscultation. HEART: S1, S2. ABDOMEN: Obese. Bowel sounds active. Soft, nontender. BACK: Positive CVA tenderness bilaterally. EXTREMITIES: No gross edema or cyanosis. SKIN: Warm without generalized rash. NEUROLOGIC: Alert and oriented times 3. Labs Lab Laboratory Tests Test 01/30/18 05:15 White Blood Count 10.1 x10^3/uL (4.0-11.0) Red Blood Count 3.61 x10^6/uL (3.50-5.40) Hemoglobin 11.1 g/dL (12.0-15.5) Hematocrit 31.8 % (36.0-47.0) Mean Corpuscular Volume 88 fL (79-100) Mean Corpuscular Hemoglobin 31 pg (25-35) Mean Corpuscular Hemoglobin Concent 35 g/dL (31-37) Red Cell Distribution Width 12.9 % (11.5-14.5) Platelet Count 218 x10^3/uL (140-400) Sodium Level 137 mmol/L (136-145) Potassium Level 3.7 mmol/L (3.5-5.1) Chloride Level 100 mmol/L (98-107) Carbon Dioxide Level 31 mmol/L (21-32) Anion Gap 6 (6-14) Blood Urea Nitrogen 11 mg/dL (7-20) Creatinine 0.8 mg/dL (0.6-1.0) Estimated GFR (Cockcroft-Gault) 74.5 Glucose Level 108 mg/dL (70-99) Calcium Level 8.0 mg/dL (8.5-10.1) Micro G neg milan in urine Objective Assessment 1. Acute cystitis with possible pyelonephritis with positive costovertebral angle tenderness. 2. Fever. 3. Leukocytosis. 4. Obesity. Plan Plan of Care Clinically improving, continue Levaquin Maintain hydration f/u cultures D/w D/w NADYA MAZARIEGOS MD Jan 30, 2018 10:32
[2018-01-30 10:58] VITALS: BP 133/85
[2018-01-30 14:21] VITALS: BP 124/82
[2018-01-30 19:00] VITALS: BP 148/85
--- NOTE | 2018-01-30 20:59 | PDOC ---
PROGRESS NOTES Chief Complaint Chief Complaint presented with fever and back pain diagnosis Pyelonephritis she feels much better today decrease pain , fever down still mild tachycardia continue IVF, continue ABx, K+ better , kidney function better, renal US noted History of Present Illness History of Present Illness 1-Pyelonephritis 2-RODERICK due to dehydration pre renal improved , renal sono ok 3-Hypokalemia replaced 4-Leukocytosis improved 5-hyperglycemia minimal HbA1c pending continue Abx, hydration , likely home later today or early tomorrow if continue to improve - will need ID rec on final antibiotic as this was pyelo, looks sensitive to bactrim and ampicillin, though Vitals Vitals Vital Signs Date Time Temp Pulse Resp B/P (MAP) Pulse Ox O2 Delivery O2 Flow Rate FiO2 01/30/18 19:00 98.7 87 17 148/85 (106) 98 Room Air 98.7 Physical Exam Physical Exam GENERAL: The patient is a slightly propped up in bed, alert, smiling, no apparent distress. VITAL SIGNS: stable HEENT: Pupils equally round. Normal conjunctivae. Oral cavity: Pharynx pink and moist. NECK: Supple. LUNGS: Clear to auscultation. HEART: S1, S2. ABDOMEN: Obese. Bowel sounds active. Soft, nontender. BACK: Positive CVA tenderness bilaterally. EXTREMITIES: No gross edema or cyanosis. SKIN: Warm without generalized rash. NEUROLOGIC: Alert and oriented times 3. General: Alert, Oriented X3, Cooperative Heart: Regular rate, Normal S1, Normal S2 Lungs: Clear Abdomen: Normal bowel sounds, Soft, No tenderness Extremities: No clubbing, No cyanosis Labs LABS Laboratory Tests Test 01/30/18 05:15 White Blood Count 10.1 x10^3/uL (4.0-11.0) Red Blood Count 3.61 x10^6/uL (3.50-5.40) Hemoglobin 11.1 g/dL (12.0-15.5) Hematocrit 31.8 % (36.0-47.0) Mean Corpuscular Volume 88 fL (79-100) Mean Corpuscular Hemoglobin 31 pg (25-35) Mean Corpuscular Hemoglobin Concent 35 g/dL (31-37) Red Cell Distribution Width 12.9 % (11.5-14.5) Platelet Count 218 x10^3/uL (140-400) Sodium Level 137 mmol/L (136-145) Potassium Level 3.7 mmol/L (3.5-5.1) Chloride Level 100 mmol/L (98-107) Carbon Dioxide Level 31 mmol/L (21-32) Anion Gap 6 (6-14) Blood Urea Nitrogen 11 mg/dL (7-20) Creatinine 0.8 mg/dL (0.6-1.0) Estimated GFR (Cockcroft-Gault) 74.5 Glucose Level 108 mg/dL (70-99) Calcium Level 8.0 mg/dL (8.5-10.1) Comment Review of Relevant I have reviewed the following items abhijeet (where applicable) has been applied. Labs Laboratory Tests Test 01/29/18 06:25 01/30/18 05:15 White Blood Count 12.4 x10^3/uL (4.0-11.0) 10.1 x10^3/uL (4.0-11.0) Red Blood Count 3.78 x10^6/uL (3.50-5.40) 3.61 x10^6/uL (3.50-5.40) Hemoglobin 11.3 g/dL (12.0-15.5) 11.1 g/dL (12.0-15.5) Hematocrit 33.3 % (36.0-47.0) 31.8 % (36.0-47.0) Mean Corpuscular Volume 88 fL (79-100) 88 fL (79-100) Mean Corpuscular Hemoglobin 30 pg (25-35) 31 pg (25-35) Mean Corpuscular Hemoglobin Concent 34 g/dL (31-37) 35 g/dL (31-37) Red Cell Distribution Width 12.8 % (11.5-14.5) 12.9 % (11.5-14.5) Platelet Count 215 x10^3/uL (140-400) 218 x10^3/uL (140-400) Sodium Level 140 mmol/L (136-145) 137 mmol/L (136-145) Potassium Level 3.6 mmol/L (3.5-5.1) 3.7 mmol/L (3.5-5.1) Chloride Level 102 mmol/L (98-107) 100 mmol/L (98-107) Carbon Dioxide Level 27 mmol/L (21-32) 31 mmol/L (21-32) Anion Gap 11 (6-14) 6 (6-14) Blood Urea Nitrogen 13 mg/dL (7-20) 11 mg/dL (7-20) Creatinine 0.9 mg/dL (0.6-1.0) 0.8 mg/dL (0.6-1.0) Estimated GFR (Cockcroft-Gault) 65.0 74.5 BUN/Creatinine Ratio 14 (6-20) Glucose Level 112 mg/dL (70-99) 108 mg/dL (70-99) Calcium Level 8.3 mg/dL (8.5-10.1) 8.0 mg/dL (8.5-10.1) Total Bilirubin 0.4 mg/dL (0.2-1.0) Aspartate Amino Transf (AST/SGOT) 45 U/L (15-37) Alanine Aminotransferase (ALT/SGPT) 59 U/L (14-59) Alkaline Phosphatase 112 U/L (46-116) Total Protein 6.1 g/dL (6.4-8.2) Albumin 2.0 g/dL (3.4-5.0) Albumin/Globulin Ratio 0.5 (1.0-1.7) Laboratory Tests Test 01/30/18 05:15 White Blood Count 10.1 x10^3/uL (4.0-11.0) Red Blood Count 3.61 x10^6/uL (3.50-5.40) Hemoglobin 11.1 g/dL (12.0-15.5) Hematocrit 31.8 % (36.0-47.0) Mean Corpuscular Volume 88 fL (79-100) Mean Corpuscular Hemoglobin 31 pg (25-35) Mean Corpuscular Hemoglobin Concent 35 g/dL (31-37) Red Cell Distribution Width 12.9 % (11.5-14.5) Platelet Count 218 x10^3/uL (140-400) Sodium Level 137 mmol/L (136-145) Potassium Level 3.7 mmol/L (3.5-5.1) Chloride Level 100 mmol/L (98-107) Carbon Dioxide Level 31 mmol/L (21-32) Anion Gap 6 (6-14) Blood Urea Nitrogen 11 mg/dL (7-20) Creatinine 0.8 mg/dL (0.6-1.0) Estimated GFR (Cockcroft-Gault) 74.5 Glucose Level 108 mg/dL (70-99) Calcium Level 8.0 mg/dL (8.5-10.1) Microbiology 01/28/18 Blood Culture - Preliminary, Resulted NO GROWTH AFTER 2 DAYS 01/28/18 Urine Culture - Final, Complete 01/28/18 Urine Culture Result 1 (MARLEE) - Final, Complete 01/28/18 Antimicrobic Susceptibility - Final, Complete Medications Current Medications Ondansetron HCl (Zofran) 4 mg 1X ONCE IV Last administered on 01/27/18at 23:53 ; Start 01/27/18 at 23:30; Stop 01/27/18 at 23:31; Status DC Sodium Chloride 1,000 ml @ 1,000 mls/hr 1X ONCE IV Last administered on at 23:53; Start 01/27/18 at 23:30; Stop 01/28/18 at 00:29; Status DC Potassium Chloride (KCl Oral Soln) 40 meq 1X ONCE PO Last administered on 01/28at 01:06; Start 01/28/18 at 01:00; Stop 01/28/18 at 01:01; Status DC Levofloxacin/ Dextrose 100 ml @ 100 mls/hr 1X ONCE IV Last administered on at 01:06; Start 01/28/18 at 01:00; Stop 01/28/18 at 01:59; Status DC Sodium Chloride 1,000 ml @ 1,000 mls/hr 1X ONCE IV Last administered on at 01:00; Start 01/28/18 at 01:00; Stop 01/28/18 at 01:59; Status DC Potassium Chloride (KCl Oral Soln) 40 meq ONCE ONCE PO Last administered on at 03:00; Start 01/28/18 at 01:30; Stop 01/28/18 at 01:31; Status DC Potassium Chloride (KCl Oral Soln) 40 meq 1X ONCE PO Last administered on 01/28at 03:12; Start 01/28/18 at 03:30; Stop 01/28/18 at 03:31; Status DC Morphine Sulfate (Morphine Sulfate) 4 mg 1X ONCE IV Last administered on at 01:08; Start 01/28/18 at 01:00; Stop 01/28/18 at 01:01; Status DC Morphine Sulfate (Morphine Sulfate) 6 mg PRN Q4HRS PRN IV SEVERE PAIN Last administered on 01/29/18at 20:20; Start 01/28/18 at 02:45 Acetaminophen (Tylenol) 650 mg PRN Q6HRS PRN PO FEVER Last administered on 01/30at 03:21; Start 01/28/18 at 03:00 Influenza Virus Vaccine (Afluria Trivalent [id number] Syringe) 0.5 ml ONCE ONCE VAX IM Last administered on 01/28/18at 09:06; Start 01/28/18 at 09:00; Stop at 09:01; Status DC Potassium Chloride (Klor-Con) 40 meq 1X ONCE PO Last administered on at 15:00; Start 01/28/18 at 13:00; Stop 01/28/18 at 13:01; Status DC Levofloxacin/ Dextrose 100 ml @ 100 mls/hr Q24H IV Last administered on at 20:16; Start 01/28/18 at 22:00 Lactobacillus Rhamnosus (Culturelle) 1 cap BID PO Last administered on at 08:35; Start 01/28/18 at 21:00 Hydrochlorothiazide (Hydrodiuril) 25 mg [id number] PO Last administered on at 11:24; Start 01/29/18 at 09:00; Stop 01/29/18 at 13:18; Status DC Tramadol HCl (Ultram) 50 mg PRN TID PRN PO MODERATE PAIN Last administered on 01/30/18at 00:41; Start 01/28/18 at 21:45 Non-Formulary Medication (Budesonide/ Formoterol Fumarate (Symbicort 80-4.5 Mcg Inhaler)) 1 puff PRN TID IH ; Start 01/28/18 at 21:45; Status UNV Non-Formulary Medication (Lisdexamfetamine Dimesylate (Vyvanse)) 70 mg DAILY PO ; Start 01/29/18 at 09:00; Stop 01/29/18 at 11:39; Status DC Meloxicam (Mobic) 15 mg DAILY PO Last administered on 01/30/18 08:35; Start at 09:00 Albuterol Sulfate (Ventolin Neb Soln) 2.5 mg RTQID NEB Last administered on at 08:15; Start 01/29/18 at 08:00; Stop 01/29/18 at 12:41; Status DC Budesonide (Pulmicort) 0.5 mg RTBID NEB Last administered on 01/29/18at 19:42; Start 01/29/18 at 08:00 Pantoprazole Sodium (Protonix) 40 mg DAILYAC PO Last administered on 01/30/18 08:35; Start 01/29/18 at 09:30 Potassium Chloride/Dextrose/ Sod Cl 1,000 ml @ 125 mls/hr Q8H IV ; Start at 09:30; Status Cancel Potassium Chloride/Sodium Chloride 1,000 ml @ 125 mls/hr Q8H IV Last administered on 01/30/18at 17:00; Start 01/29/18 at 10:30 Albuterol Sulfate (Ventolin Neb Soln) 2.5 mg [id number] NEB Last administered on 19:42; Start 01/29/18 at 19:00 Hydrochlorothiazide (Hydrodiuril) 25 mg DAILY PO Last administered on 08:35; Start 01/30/18 at 09:00 Active Scripts Active Reported Symbicort 80-4.5 Mcg Inhaler (Budesonide/Formoterol Fumarate) 10.2 Gm Hfa.aer.ad 1 Puff IH PRN TID Vyvanse (Lisdexamfetamine Dimesylate) 70 Mg Capsule 70 Mg PO DAILY Meloxicam 15 Mg Tablet 15 Mg PO DAILY Tramadol Hcl 50 Mg Tablet 50 Mg PO PRN TID PRN Vitals/I & O Vital Sign - Last 24 Hours 01/29/18 01/30/18 01/30/18 01/30/18 22:52 00:41 01:41 03:00 Temp 97.9 100.2 97.9 100.2 Pulse 90 90 Resp 16 20 18 16 B/P (MAP) 102/65 (77) 158/87 (110) Pulse Ox 94 95 O2 Delivery Room Air Room Air Room Air Room Air 01/30/18 01/30/18 01/30/18 01/30/18 07:10 07:59 10:58 14:21 Temp 98.1 98.1 98.3 98.1 98.1 98.3 Pulse 75 83 87 Resp 16 17 18 B/P (MAP) 134/83 (100) 133/85 (101) 124/82 (96) Pulse Ox 95 96 98 O2 Delivery Room Air Room Air Room Air Room Air 01/30/18 19:00 Temp 98.7 98.7 Pulse 87 Resp 17 B/P (MAP) 148/85 (106) Pulse Ox 98 O2 Delivery Room Air Intake and Output 01/29/18 01/29/18 01/30/18 15:00 23:00 07:00 Intake Total 950 ml Output Total 0 ml Balance 950 ml 0 ml TIFFANI HICKS MD Jan 30, 2018 20:59
[2018-01-30 23:00] VITALS: BP 138/77
[2018-01-31 03:00] VITALS: BP 132/80
[2018-01-31] MEDS: ALBUTEROL SULFATE 2.5 MG/3 ML NEBU. NEB SCH ×2 (07:00→12:03)
[2018-01-31 07:15] VITALS: BP 141/77
[2018-01-31] MEDS: BUDESONIDE 0.5 MG/2 ML NEBU. NEB SCH (08:00)
[2018-01-31] MEDS: POTASSIUM CL 20MEQ-0.45% NACL 1,000 ML IV SCH (08:30)
[2018-01-31] MEDS: hydroCHLOROthiazide 25 MG TABLET PO SCH (08:31)
[2018-01-31] MEDS: LACTOBACILLUS RHAMNOSUS GG 1 CAPSULE. PO SCH (08:31)
[2018-01-31] MEDS: PANTOPRAZOLE 40 MG TABLET.DR. PO SCH (08:32)
[2018-01-31] MEDS: MELOXICAM 7.5 MG TABLET PO SCH (08:32)
[2018-01-31] MEDS ORDERED: LEVO500T59 PO (09:30)
--- NOTE | 2018-01-31 09:30 | PDOC ---
Infectious Disease Note Subjective Subjective Ready to go home Feeling much better No fevers last 24 hours Says urine is now clear ROS ROS per HPI otherwise neg Vital Sign Vital Signs Vital Signs Date Time Temp Pulse Resp B/P (MAP) Pulse Ox O2 Delivery O2 Flow Rate FiO2 01/31/18 07:45 Room Air 01/31/18 07:15 98.1 73 16 141/77 (98) 97 98.1 Physical Exam PHYSICAL EXAM GENERAL: Propped up in bed, alert, smiling HEENT: Oral cavity, pharynx pink and moist. LUNGS: Clear to auscultation. HEART: S1, S2. ABDOMEN: Obese. Bowel sounds active. Soft, nontender. BACK: CVAT neg, EXTREMITIES: No gross edema or cyanosis. SKIN: Warm without generalized rash. NEUROLOGIC: Alert and oriented times 3. Labs Micro Microbiology 01/28/18 Blood Culture - Preliminary, Resulted NO GROWTH AFTER 3 DAY URINE CULTURE RES 1 Final Escherichia coli Antibiotic RSLT#1 Amoxicillin/Clavulanic Acid S<=2 Ampicillin S<=2 Cefepime S<=0.12 Ceftriaxone S<=0.25 Cefuroxime S =4 Ciprofloxacin S<=0.25 Ertapenem S<=0.12 Gentamicin S<=1 Imipenem S<=0.25 Levofloxacin S<=0.12 Meropenem S<=0.25 Nitrofurantoin S<=16 Piperacillin/Tazobactam S<=4 Tetracycline S<=1 Tobramycin S<=1 Trimethoprim/Sulfa S<=20 Objective Assessment Acute cystitis w/ possible pyelonephritis with positive CVAT Fever better Leukocytosis, resolved Obesity Plan Plan of Care Clinically improving Maintain hydration OK from ID standpoint to discharge home on Levaquin D/w Dr. Alegre Attending Co-Sign The patient was seen and interviewed as well as examined at the bedside. The chart was reviewed. The case was discussed. Agree with the plan of care. AMA JIMENEZ APRN Jan 31, 2018 09:30 NADYA MCHUGH MD Jan 31, 2018 11:05
== END 2018-01-31 11:00 | disposition home or self-care (01) | DRG 683 ==
LOC: ER 22:59 → 5 SOUTH 01-28 00:34
PROVIDERS: ADMIT Internal Medicine; ATTEND Internal Medicine
DX: N17.9 Acute kidney failure, unspecified (principal); N30.00 Acute cystitis without hematuria; N12 Tubulo-interstitial nephritis, not specified as acute or chronic; E87.6 Hypokalemia; E66.9 Obesity, unspecified; Z68.36 Body mass index [BMI] 36.0-36.9, adult; E86.0 Dehydration; Z82.49 Family history of ischemic heart disease and other diseases of the circulatory system; M19.90 Unspecified osteoarthritis, unspecified site; Z88.5 Allergy status to narcotic agent; Z88.8 Allergy status to other drugs, medicaments and biological substances; R73.9 Hyperglycemia, unspecified
CPT/HCPCS: 36415; 76770; 80048; 80053; 81001; 83036; 83605; 85007; 85025; 85027; 87040; 87086; 87186; 90471; 90756; 94640; 94760; 96365; 96375; J1956; J2270; J2405; J7030; J7613; J7626; 99285-25; Q2035